=== PATIENT | female | born 1995 | race Caucasian/White ===

== ENCOUNTER 2018-10-29 14:55 | Outpatient (CLI) | payer BC ==
[~2018-10-29] VITALS: Ht 152.4 cm; Wt 72.6 kg
[2018-10-29 15:45] VITALS: BP 110/71; PULSE 81; RESP 19; Ht 152.4 cm; Wt 72.6 kg
--- NOTE | 2018-10-29 17:15 | PN ---
Triage Information Date/Time Reason for visit: DFM Weeks of Gestation 35 weeks and 1 day /Para G1 Diabetes: none Hypertention: none Objective Vital Signs Date Temp Pulse Resp B/P (MAP) Pulse Ox O2 O2 Flow FiO2 Time Delivery Rate 10/29/18 98.5 81 19 110/71 15:45 (84) Heart Rate: 130's Contractions: None Disposition: Discharge Assessment/Plan 23 years old 1 with single intrauterine at 35 weeks and 1 day with MARCELLE of 12/02/2018 complaining of decreased movement. She denies nausea, vomiting, shortness of breath, chest pain, abdominal pain, headache, visual changes, vaginal bleeding or LOF. -FHR: No sign of metabolic acidosis- Category I -Contractions: None -Ultrasound performed: SYBIL 18, biophysical profile 8 out of 8 -Patient reassured, currently has good movement -Symptoms and sign of labor, preeclampsia, kick count discussed with patient, she voiced understanding. All of her questions answered. -Patient was discharged home in stable condition with the appropriate discharge instructions provided. I would like patient to have close follow-up with her primary physician or outpatient clinic in 1-2 days or return to triage for worsening symptoms or any other urgent concerns. TYRONE CHACON Oct 29, 2018 17:15
== END 2018-10-29 17:10 | disposition home or self-care (01) ==
LOC: OBT 14:55 → L-D 14:55 → OBT 17:10
PROVIDERS: ATTEND Obstetrics & Gynecology
DX: O36.8130 Decreased fetal movements, third trimester, not applicable or unspecified (principal); Z3A.35 35 weeks gestation of pregnancy
CPT/HCPCS: 76815; 76818; Z7500; G0463

== ENCOUNTER 2018-11-26 12:54 | Inpatient (IN) | payer BC ==
[~2018-11-26] VITALS: Ht 160 cm; Wt 76.0 kg
[2018-11-26] MEDS ORDERED: MISOPROSTOL 200 MCG TAB PR PRN (13:00)
[2018-11-26] MEDS ORDERED: BUTORPHANOL 2 MG INJ IV PRN (13:00)
[2018-11-26] MEDS ORDERED: CARBOPROST 250 MCG INJ IM PRN (13:00)
[2018-11-26] MEDS ORDERED: METHYLERGONOVINE 0.2 MG INJ IM PRN (13:00)
[2018-11-26] MEDS ORDERED: OXYTOCIN 30 UNITS/LR 500 ML IV SCH ×3 (13:00→14:30)
[2018-11-26] MEDS ORDERED: OXYTOCIN 30 UNITS/LR 500 ML IV PRN (13:00)
[2018-11-26] MEDS ORDERED: IBUPROFEN 600 MG TAB PO PRN (13:00)
[2018-11-26 13:22] VITALS: BP 129/77; PULSE 78; RESP 20
[2018-11-26 13:23] VITALS: Ht 160 cm; Wt 76.0 kg
[2018-11-26] MEDS: LACTATED RINGER'S 1,000 ML IV SCH ×2 (14:44→17:21)
[2018-11-27] MEDS: LIDOCAINE 1% (MPF) 30 ML INJ INJ PRN ×2 (00:31→00:32)
--- NOTE | 2018-11-27 02:28 | LDN ---
Date/Time of Note Date/Time of Note DATE: 11/27/18 TIME: 02:25 Delivery Summary November 27, 2018 Placenta Delivered: Spontaneously Meconium: none Episiotomy: No Indication for episiotomy N./A Perineal laceration: 1 Laceration repair: First-degree vaginal and perineal and bilateral labial laceration noted. Repaired using 3-0 chromic Anesthesia type: Epidural Estimated blood loss: 300 Sponge & Needle done & correct: Yes All needle counts correct: Yes Any foreign bodies felt in the: No Infant Delivery Information Sex Sex: female Apgars 1 Minute: 8 5 Minute: 9 Suctioning Nose & mouth suctioned at minesh: Yes Delee suction performed: Yes Umbilical Cord Umbilical cord with: 3 Vessels Cord presentations: no nuchal cord Cord Blood was obtained: Yes Mother & Baby Disposition Disposition Mom & Baby to Maternity; Good: Yes Mom transferred to: Other ( unit) Baby to NICU: No JANE CUETO MD Nov 27, 2018 02:28
[2018-11-27] MEDS ORDERED: METHYLERGONOVINE 0.2 MG INJ IM PRN (02:30)
[2018-11-27] MEDS ORDERED: WITCH HAZEL/GLYCERIN PAD PR PRN (02:30)
[2018-11-27] MEDS ORDERED: NACL 0.9% 3 ML SYG IV SCH (02:30)
[2018-11-27] MEDS: IBUPROFEN 600 MG TAB PO SCH ×5 (02:30→23:26)
[2018-11-27] MEDS ORDERED: DIPHENHYDRAMINE 25 MG CAP PO PRN (02:30)
[2018-11-27] MEDS ORDERED: OXYTOCIN 30 UNITS/LR 500 ML IV PRN (02:30)
[2018-11-27] MEDS: SENNA/DOCUSATE NA (8.6MG/50MG) TAB PO SCH ×3 (02:30→21:02)
[2018-11-27] MEDS ORDERED: morphine 2 MG INJ IV PRN (02:30)
[2018-11-27] MEDS ORDERED: ZOLPIDEM 5 MG TAB PO PRN (02:30)
[2018-11-27] MEDS ORDERED: CARBOPROST 250 MCG INJ IM PRN (02:30)
[2018-11-27] MEDS ORDERED: LANOLIN HPA 1 PKT TOP PRN (02:30)
[2018-11-27] MEDS ORDERED: HYDROCODONE/APAP (5/325) TAB PO PRN (02:30)
[2018-11-27] MEDS ORDERED: ONDANSETRON 4 MG INJ IV PRN (02:30)
[2018-11-27] MEDS ORDERED: MISOPROSTOL 200 MCG TAB PR PRN (02:30)
[2018-11-27] MEDS ORDERED: OXYTOCIN 30 UNITS/LR 500 ML IV SCH (02:30)
[2018-11-27 02:45] VITALS: BP 106/77; PULSE 70; RESP 19
--- NOTE | 2018-11-27 03:31 | PREOPHP ---
DATE OF ADMISSION: 11/26/2018 HISTORY OF PRESENT ILLNESS: This is a 23-year-old lady, 1, para 0, EDC 12/02/2018 at 39 and 1/7 weeks, admitted to labor and delivery area in labor. She had care in my [place] office and the care was uneventful. She started to have contractions about a few hours prior to admission and got worse up to the time of admission. PAST PERSONAL HISTORY: No history of diabetes, TB, asthma. ALLERGIES: NO ALLERGIES. SOCIAL HISTORY: The patient does not smoke. She does not drink. MEDICATIONS: She does not take any drugs except her iron and vitamins. GYNECOLOGIC HISTORY: She had menarche at the age of 10, every 28 days interval, 3 to 4 days duration, and moderate in amount. FAMILY HISTORY: She has had family history of diabetes. Parents have hypertension. REVIEW OF SYSTEMS: CARDIOVASCULAR: No chest pains. RESPIRATORY: No cough. GASTROINTESTINAL: No diarrhea, no vomiting. GENITOURINARY: No dysuria. PHYSICAL EXAMINATION: GENERAL: Reveals a conscious, coherent lady and in no acute distress. VITAL SIGNS: Her blood pressure 120/80, pulse rate 80 per minute, respirations 16 per minute. BREASTS, HEART AND LUNGS: Within normal limits. ABDOMEN: Soft, fundic height 37 cm. heart tones 140 per minute. PELVIC: Done in the clinic and revealed the cervix to be 4 to 5 cm dilated, 100% effaced, station 0, in a cephalic presentation with the bag of water intact. Good bloody show was noted. EXTREMITIES: No pedal edema. ADMITTING DIAGNOSIS: A 39 and 1/7 weeks intrauterine in labor. The patient was planned to be observed for progress of labor. The plans were explained to the patient and she understood everything totally. The risks, benefits, and alternatives to vaginal delivery was explained to her as the alternative of and risks of explained. She wanted to go for vaginal delivery, so that I ordered Pitocin augmentation at 3:21 p.m., 11/26/2018. I rechecked the patient and she was 5 cm dilated and 100% effaced, station 0 in cephalic presentation with the bag of water intact. Next, I did artificial rupture of membranes. scalp electrode and IUPC was inserted. She was planned to be started on Pitocin augmentation at 7:30 p.m. at 5:10 p.m., 11/26/2018. I have reevaluated the patient. The patient was 7 cm dilated, 100% effaced, so she was continued on Pitocin augmentation. At 7:30 p.m. she was 8 cm dilated and did not receive any pain medication and so she at this point of time, the patient wanted to go for IV pain medication so she was given Stadol and the case was endorsed to Dr. Gonzalez to be delivered and the history was given to her. Dictated By: ISHA BROOKS/PAULO Conf#: [id number] DID#: [id number] MTDD
[2018-11-27 03:40] VITALS: BP 112/66; PULSE 65; RESP 20
[2018-11-27 08:00] VITALS: BP 111/61; PULSE 63; RESP 18
[2018-11-27] MEDS ORDERED: BENZOCAINE 20% 56 ML SPRAY TOP PRN (08:00)
[2018-11-27 16:12] VITALS: BP 108/63; PULSE 66; RESP 16
[2018-11-27 20:00] VITALS: BP 106/51; PULSE 69; RESP 19
[2018-11-28 03:00] VITALS: BP 108/63; PULSE 63; RESP 20
[2018-11-28] MEDS: IBUPROFEN 600 MG TAB PO SCH ×4 (05:32→23:27)
[2018-11-28 08:00] VITALS: BP 107/65; PULSE 54; RESP 18
[2018-11-28] MEDS: SENNA/DOCUSATE NA (8.6MG/50MG) TAB PO SCH ×2 (09:40→21:40)
[2018-11-28 16:10] VITALS: BP 120/79; PULSE 68; RESP 16
--- NOTE | 2018-11-28 16:52 | PN ---
Date/Time of Note Date/Time of Note DATE: 11/28/18 TIME: 16:51 Assessment/Plan VTE Prophylaxis Risk score (from Ns)>0 risk: 1 SCD applied (from [facility] [place]): No SCD contraindicated: low risk/ambulating Pharmacological prophylaxis: NA/contraindicated Pharm contraindication: low risk/ambulating Lines/Catheters [facility]from [facility] Peripheral IV Assessment/Plan Assessment/Plan POST DAY 1 HOME TOMORROW RETURN TO CLINIC IN 2 WEEKS CONTINUE WITH VITAMINS OD AND FERROUS SULFATE PO TID DIET ADVISED COUNSELED INSTRUCTED CALL OFFICE IF THERE IS ANY PROBLEMS OR CONCERN Result Diagram: 11/28/18 1349 Results 24hrs Laboratory Tests Test 11/28/18 13:49 White Blood Count 10.1 # Red Blood Count 3.42 L Hemoglobin 11.2 L Hematocrit 33.8 L Mean Corpuscular Volume 98.8 Mean Corpuscular Hemoglobin 32.7 Mean Corpuscular Hemoglobin Concent 33.1 Red Cell Distribution Width 12.8 Platelet Count 211 Mean Platelet Volume 10.0 Immature Granulocytes % 0.200 Neutrophils % 67.3 Lymphocytes % 26.6 Monocytes % 5.0 Eosinophils % 0.6 Basophils % 0.3 Nucleated Red Blood Cells % 0.0 Immature Granulocytes # 0.020 Neutrophils # 6.8 Lymphocytes # 2.7 Monocytes # 0.5 Eosinophils # 0.1 Basophils # 0.0 Nucleated Red Blood Cells # 0.0 Subjective 24 Hr Interval Summary Free Text/Dictation FEELS GOOD, GOOD URINE OUTPUT, GOOD BOWEL MOVEMENT Exam/Review of Systems Exam Vitals Vital Signs Date Temp Pulse Resp B/P (MAP) Pulse Ox O2 O2 Flow FiO2 Time Delivery Rate 11/28/18 98.0 68 16 120/79 Room Air 16:10 (93) Intake and Output 11/27/18 11/27/18 11/28/18 1515:00 23:00 07:00 IntakeIntake Total 350 ml OutputOutput Total 300 ml BalanceBalance 50 ml Exam VITAL SIGNS STABLE: YES AFEBRILE: YES BREAST NOT ENGORGED, NON-TENDER, NO APPRECIABLE MASS: YES LUNGS CLEAR, NO RALES, WHEEZES, RHONCHI: YES SINUS RHYTHM WITHOUT MURMUR: YES ABDOMEN: NON-TENDER FUNDUS: BELOW UMBILICUS BOWEL SOUNDS: PRESENT UTERUS: FIRM TEAR HEALING WELL [place]: LIGHT DEEP TENDON REFLEXES: 0 EXTREMITIES: NO CALF TENDERNESS EDEMA SCALE: NONE Results Results 24hrs Laboratory Tests Test 11/28/18 13:49 White Blood Count 10.1 # Red Blood Count 3.42 L Hemoglobin 11.2 L Hematocrit 33.8 L Mean Corpuscular Volume 98.8 Mean Corpuscular Hemoglobin 32.7 Mean Corpuscular Hemoglobin Concent 33.1 Red Cell Distribution Width 12.8 Platelet Count 211 Mean Platelet Volume 10.0 Immature Granulocytes % 0.200 Neutrophils % 67.3 Lymphocytes % 26.6 Monocytes % 5.0 Eosinophils % 0.6 Basophils % 0.3 Nucleated Red Blood Cells % 0.0 Immature Granulocytes # 0.020 Neutrophils # 6.8 Lymphocytes # 2.7 Monocytes # 0.5 Eosinophils # 0.1 Basophils # 0.0 Nucleated Red Blood Cells # 0.0 Medications Medication Current Medications Oxytocin/Lactated Ringer's 500 ml @ 0 mls/hr ONCE PRN IV .VAGINAL BLEEDING; Start 11/26/18 at 13:00 IV Flush (NS 3 ml) 3 ml PER PROTOCOL IV ; Start 11/27/18 at 02:30 Morphine Sulfate (morphine) 1 mg Q2H PRN IV .PAIN 6-10; Start 11/27/18 at 02:30 Ibuprofen (Motrin) 600 mg Q6 PO Last administered on 11/28/18at 12:25; Admin Dose 600 MG; Start 11/27/18 at 02:30 Acetaminophen/ Hydrocodone Bitart ([place] (5/325)) 1 tab Q4H PRN PO .PAIN 1-5; Start 11/27/18 at 02:30 Ondansetron HCl (Zofran Inj) 4 mg Q6H PRN IV NAUSEA/VOMITING; Start 11/27/18 at 02:30 Diphenhydramine HCl (Benadryl) 25 mg Q6H PRN PO .PRUTITUS; Start 11/27/18 at 02:30 Zolpidem Tartrate (Ambien) 5 mg QHS PRN PO .INSOMNIA; Start 11/27/18 at 02:30 Senna/Docusate Sodium (Senokot-S) 1 tab BID PO Last administered on 11/28/18at 09:40; Admin Dose 1 TAB; Start 11/27/18 at 02:30 Witch Lakia/ Glycerin (Tucks Pads) 1 pad BEDSIDE MEDICATION PRN PA .HEMORRHOID/EPISIOTOMY PAIN Last administered on 11/27/18at 05:16; Admin Dose 1 PAD; Start 11/27/18 at 02:30 Lanolin (Lanolin Hpa) 1 applic BEDSIDE MEDICATION PRN TOP .NIPPLES Last administered on 11/28/18at 00:45; Admin Dose 1 APPLIC; Start 11/27/18 at 02:30 Measles/Mumps/ Rubella Vaccine Live (Mmr Ii Vaccine) 0.5 ml ONCE ONCE SC* ; Start 11/29/18 at 09:00; Stop 11/29/18 at 09:01 Diphtheria/ Tetanus/Acell Pertussis (Adacel) 0.5 ml ONCE ONCE IM* ; Start 11/29/18 at 09:00; Stop 11/29/18 at 09:01 Varicella Virus Vaccine Live (Varivax Vaccine With Diluent) 1,350 unit ONCE ONCE SC* ; Start 11/29/18 at 09:00; Stop 11/29/18 at 09:01 Oxytocin/Lactated Ringer's 500 ml @ 0 mls/hr ONCE PRN IV .VAGINAL BLEEDING; Start 11/27/18 at 02:30 Methylergonovine Maleate (Methergine) 0.2 mg ONCE PRN IM .VAGINAL BLEEDING; Start 11/27/18 at 02:30 Carboprost Tromethamine (Hemabate) 250 mcg ONCE PRN IM .VAGINAL BLEEDING; Start 11/27/18 at 02:30 Misoprostol (Cytotec) 1,000 mcg ONCE PRN PA .VAGINAL BLEEDING; Start 11/27/18 at 02:30 Benzocaine (Dermoplast [place]) 1 spray PRN PRN TOP HEMORRHOID/EPISIOTMY PAIN; Start 11/27/18 at 08:00 ISHA RECINOS MD Nov 28, 2018 16:52
[2018-11-28 20:40] VITALS: BP 107/63; PULSE 57; RESP 17
[2018-11-29 04:00] VITALS: BP 104/59; PULSE 62; RESP 17
[2018-11-29] MEDS: IBUPROFEN 600 MG TAB PO SCH ×2 (06:13→11:52)
[2018-11-29 08:30] VITALS: BP 109/72; PULSE 59; RESP 18
[2018-11-29] MEDS ORDERED: VARICELLA VACCINE LIVE/PF 1,350 UNIT/0.5 ML ML SC* ONE (09:00)
[2018-11-29] MEDS ORDERED: MEASLES,MUMPS,RUBELLA VACCINE INJ SC* ONE (09:00)
[2018-11-29] MEDS ORDERED: DIPHTH/TET/ACEL PERTUSS (ADULT) 0.5 ML VIAL IM* ONE (09:00)
[2018-11-29] MEDS: SENNA/DOCUSATE NA (8.6MG/50MG) TAB PO SCH (09:34)
--- NOTE | 2018-11-30 15:19 | DELSUM ---
Delivery Summary A-C Datetime Report Generated by CPN: 11/30/2018 15:19 DELIVERY PERSONNEL Band Splitter: Tersigni, Bety MATERNAL INFORMATION Delivery Anesthesia: Local Medications in Delivery: LR with 30 units of pitocin Delivery QBL (ml): 300 Placenta Cultured: No Maternal Complications: None LABOR SUMMARY EDC: 12/02/2018 00:00 No. Babies in Womb: 1 Attempted: No Labor Anesthesia: None LABOR INFORMATION Reason for Induction: Not Applicable Onset of Labor: 11/26/2018 13:00 Complete Dilatation: 11/26/2018 23:28 Oxytocin: Augmentation Group B Beta Strep: Negative Antibiotics # of Doses: 0 Steroids Given: None Reason Steroids Not Administered: Not Applicable MEMBRANES Membranes Rupture Method: Artificial Rupture of Membranes: 11/26/2018 15:20 Length of Rupture (hr): 8.88 Amniotic Fluid Color: Clear Amniotic Fluid Amount: Moderate Amniotic Fluid Odor: None STAGES OF LABOR Stage 1 hr: 10 Stage 1 min: 28 Stage 2 hr: 0 Stage 2 min: 45 Stage 3 hr: 0 Stage 3 min: 2 Total Time in Labor hr: 11 Total Time in Labor min: 15 VAGINAL DELIVERY Laceration Extension: First Degree Laceration Type: Perineal; Vaginal Other Laceration: bilateral labial Laceration Repair: Yes Initial Vag Sponge Count: 10 Final Vag Sponge Count: 10 Initial Vag Sharps Count: 1+3 Final Vag Sharps Count: 4 Sponge Count Correct: Yes; Vaginal Sweep Performed Sharps Count Correct: Yes BABY A INFORMATION Infant Delivery Date/Time: 11/27/2018 00:13 Method of Delivery: Vaginal Born in Route : No : N/A Forceps: N/A Vacuum Extraction: N/A Shoulder Dystocia : N/A SHOULDER DYSTOCIA BABY A Delivery Date/Time: 11/27/2018 00:13 PRESENTATION/POSITION BABY A Presentation: Cephalic Cephalic Presentation: Vertex Vertex Position: Left Occipital Anterior Breech Presentation: N/A PLACENTA INFORMATION BABY A Placenta Delivery Time : 11/27/2018 00:15 Placenta Method of Delivery: Spontaneous Placenta Status: Delivered SCORES BABY A Heart Rate 1 min: >100 bpm Resp Effort 1 min: Good Cry Reflex Irritability 1 min: Cough/Sneeze/Pulls Away Muscle Tone 1 min: Active Motion Color 1 min: Blue/Pale Resuscitation Effort 1 min: Tactile Stimulation SCORE 1 MIN: 8 Heart Rate 5 min: >100 bpm Resp Effort 5 min: Good Cry Reflex Irritability 5 min: Cough/Sneeze/Pulls Away Muscle Tone 5 min: Active Motion Color 5 min: Body [place], Extremit Blue Resuscitation Effort 5 min: Tactile Stimulation SCORE 5 MIN: 9 INFANT INFORMATION BABY A Gestational Age at Delivery: 39.1 Gestational Status: Full Term- 39- 40.6 Weeks Infant Outcome : Liveborn Condition : Stable Sex: Female IDENTIFICATION/MEDS BABY A ID Band Number: [id number] ID Band Location: Right Leg; Left Arm Sensor Applied: Yes Sensor Number: [id number] Sensor Location : Cord Clamp Vitamin K Given : Not Given Erythromycin Given: Not Given WEIGHT/LENGTH BABY A Infant Birthweight (gm): 3220 Weight (lb): 7 Weight (oz): 2 Length (in): 19.00 Infant Length (cm): 48.26 CORD INFORMATION BABY A No. Cord Vessels: 3 Nuchal Cord : Around Neck x1, Tight Cord Blood Taken: Yes Suction: Mouth; Nose ASSESSMENT BABY A Complications: None Physical Findings at Delivery: Molding of the Head; Within Normal Limits Infant Respirations: Appears Normal Adult [employer]/ALS Called : No Infant Care By: Alfonzo YOUSSEF Transferred To: Remains with Mother
== END 2018-11-29 15:18 | disposition home or self-care (01) | DRG 807 ==
LOC: L-D 12:54 → PP1 11-27 02:24 → EDSTATUS 12-02 12:53
PROVIDERS: ADMIT Obstetrics & Gynecology; ATTEND Obstetrics & Gynecology
PROC: 10907ZC Drainage of Amniotic Fluid, Therapeutic from Products of Conception, Via Natural or Artificial Opening (ICD-10-PCS; 2018-11-26)
PROC: 10H073Z Insertion of Monitoring Electrode into Products of Conception, Via Natural or Artificial Opening (ICD-10-PCS; 2018-11-26)
PROC: 4A1H7CZ Monitoring of Products of Conception, Cardiac Rate, Via Natural or Artificial Opening (ICD-10-PCS; 2018-11-26)
PROC: 10E0XZZ Delivery of Products of Conception, External Approach (ICD-10-PCS; principal; 2018-11-27)
PROC: 0HQ9XZZ Repair Perineum Skin, External Approach (ICD-10-PCS; 2018-11-27)
DX: O70.0 First degree perineal laceration during delivery (principal); Z37.0 Single live birth; Z3A.39 39 weeks gestation of pregnancy; Z23 Encounter for immunization
CPT/HCPCS: 85025; 85610; 85730; 86592; 86850; 86900; 86901; 87340; 90715; 90716; J0595; J2590; J7120